=== PATIENT | female | born 2000 | race Caucasian/White ===

== ENCOUNTER 2023-07-09 14:27 | Emergency (ER) | payer MEDICAID, SELFPAY ==
[2023-07-09 14:37] VITALS: BP 103/66; PULSE 93; RESP 16; TEMP 35.8; O2SAT 98; BMI 20.4
--- NOTE | 2023-07-09 15:18 | CT_ITS ---
Patient: ANAND ROBLES Facility:?[facility] Patient ID:?[id number] Site Patient ID:?[id number]. Site :?[id number] Study:?CT-Abdomen/Pelvis W/ ISOVUE 370-07/09/2023 5:02:30 PM Ordering Physician:VIDYA Final Report: Indication: Right lower quadrant abdominal pain Technique: CT of the abdomen and pelvis was obtained with 56 mL of Isovue 370 intravenous contrast. Please note that all CT scans at this facility use dose modulation, iterative reconstruction, and/or weight-based dosing when appropriate to reduce radiation dose to as low as reasonably achievable. Comparison: None. Findings: Paucity of intra-abdominal fat slightly limits evaluation of the organs. Lower thorax: Normal. Liver and biliary tree: Normal. Gallbladder: Normal. Spleen: Normal. Pancreas: Normal. Adrenal glands: Normal. Kidneys and ureters: No hydronephrosis. No obstructing renal calculi. Gastrointestinal tract: Moderate stool burden is seen throughout the colon. No evidence of bowel obstruction. Possible appendix (2/88), though the appendix is not definitively visualized in its entirety. Peritoneal cavity: Trace nonspecific free fluid within the pelvis. Bladder: Normal. Pelvic organs: Normal. Vasculature: Normal. Lymph nodes: Normal. Abdominal wall: Normal. Musculoskeletal: Normal. Impression: Paucity of intra-abdominal fat slightly limits evaluation of the organs. Moderate stool burden is seen throughout the colon. No evidence of bowel obstruction. Possible appendix, though the appendix is not definitively visualized in its entirety. The visualized appendix candidate appears to be within normal limits. Please note that all CT scans at this facility use dose modulation, iterative reconstruction, and/or weight-based dosing when appropriate to reduce radiation dose to as low as reasonably achievable. Dictated by Raimundo Virk MD @ 07/09/2023 5:22:31 PM Signed by:?Raimundo Virk MD @07/09/2023 5:22:31 PM (Electronic Signature)
--- NOTE | 2023-07-09 15:54 | ED_ITS ---
HPI - Abdominal Pain General Date Seen: 07/09/23 Chief Complaint: Abdominal Pain Stated Complaint: R side abdominal pain Time Seen by Provider: 07/09/23 14:47 Source: patient Mode of arrival: ambulatory Limitations: no limitations History of Present Illness HPI narrative: Patient was a 22-year-old female sent here from urgent care. States last night she notes she lost her appetite is having some periumbilical pain. This morning she was in her hungry but ate a big breakfast the see the out make her feel better. She then quickly vomited after that. She states the pain is now radiating down to her right lower quadrant. Is not currently nauseated but does note she took some Zofran before she came. States the pain is tolerable at this time. No previous abdominal surgeries. Denies chest pain, shortness of breath, dysuria, lightheadedness, dizziness, vision changes, weakness, numbness, diarrhea, constipation. Denies ever having symptoms like this before. Has not noticed any fevers or chills. Related Data Home Medications Medication Instructions Recorded Confirmed No Known Home Medications 07/09/23 07/09/23 Allergies Allergy/AdvReac Type Severity Reaction Status Date / Time amoxicillin Allergy Verified 07/09/23 13:37 Review of Systems Status of ROS Reports: 10 or more systems reviewed and unremarkable except as noted in History and below [facility] Social History Smoking Status: Never smoker Do you use any of these nicotine containing products: None How often do you have a drink containing alcohol: never How often do you have six or more drinks on one occasion: Never AUDIT-C Alcohol total score: 0 Non-prescribed substance use: denies use Exam Narrative: Exam Narrative: Const: Well-nourished, Well-developed, in mild distress Eyes: PERRL, no conjunctival injection, and symmetrical lids HENT: Atraumatic external nose and ears. Moist mucous membranes. Neck: Symmetric, trachea midline, No thyromegaly. CVS: RRR, No murmurs or gallops. Peripheral pulses 2+ and equal in all extremities RESP: Unlabored respiratory effort. Clear to auscultation bilaterally. GI: Right lower quadrant tenderness, Nondistended, No rebound or guarding. MSK:Extremities w/o deformity, Normal Active ROM Skin: Warm, Dry. No rashes or lesions. Neuro: Normal Muscle tone, No focal neurological deficits. Psych: Awake, Alert, & Oriented x3. Appropriate mood and affect. Const: Vital Signs, click to edit/add: Vital Signs - 24 hr 07/09/23 14:37 07/09/23 17:03 Temperature 96.4 F L Pulse Rate [Pulse Oximeter] 93 83 Respiratory Rate 16 18 Blood Pressure [Ri ght Upper Arm] 103/66 111/68 Pulse Oximetry 98 100 Oxygen Delivery Me thod Room Air Room Air Course Vital Signs Vital signs: Initial Vital Signs Temperature 96.4 F L 07/09/23 14:37 Temperature Source Temporal Artery Scan 07/09/23 14:37 Pulse Rate 93 07/09/23 14:37 Respiratory Rate 16 07/09/23 14:37 Blood Pressure 103/66 07/09/23 14:37 Blood Pressure Mean 78 07/09/23 14:37 Blood Pressure Position Sitting 07/09/23 14:37 Pulse Oximetry 98 07/09/23 14:37 Oxygen Delivery Method Room Air 07/09/23 14:37 Vital Signs Temperature 96.4 F L 07/09/23 14:37 Pulse Rate 93 07/09/23 14:37 Respiratory Rate 16 07/09/23 14:37 Blood Pressure 103/66 07/09/23 14:37 Pulse Oximetry 98 07/09/23 14:37 Oxygen Delivery Method Room Air 07/09/23 14:37 Temperature 96.4 F L 07/09/23 14:37 Pulse Rate 83 07/09/23 17:03 Respiratory Rate 18 07/09/23 17:03 Blood Pressure 111/68 07/09/23 17:03 Pulse Oximetry 100 07/09/23 17:03 Oxygen Delivery Method Room Air 07/09/23 17:03 Medications Administered Medications: Discontinued Medications Generic Name Dose Route Start Last Admin Trade Name Freq PRN Reason Stop Dose Admin Lactated Ringer's 1,000 mls @ 1,000 mls/hr 07/09/23 15:18 07/09/23 17:45 Lactated Ringers 1000 Ml IV 07/09/23 16:17 Infused .Q1H ONE Infusion MDM - Abdominal Pain MDM Narrative Medical decision making narrative: Patient is a 22-year-old female presenting for right lower quadrant pain. Will give her a L fluids for dehydration associated with her nausea. Does not feel like she needs nausea or pain medication at this time. Considering the patient's symptoms I am concerned for appendicitis. Will do lab work and a CT scan. I small-bowel obstruction seems very unlikely considering her age in no history of abdominal surgeries. Lab work all returned showing no concerning abnormalities. She is not requesting any pain medication at this time. She has no other concerns noted. CT scan of the abdomen and pelvis does not definitively showed no acute appendicitis but but they believe is likely the appendix does not appear inflamed in the part they can see. Considering her otherwise normal vital signs and lab work I am comfortable sending her home at this time. This could just be a viral gastroenteritis. She does have some constipation which could also be causing symptoms. I did inform her to return to the emergency department if symptoms worsen as she could just be in the early stages the of appendicitis. She states she understands. Lab Data Labs: Lab Results 07/09/23 07/09/23 Range/Units 16:00 16:20 WBC 8.31 (4.50-11.00) K/uL RBC 4.99 (4.00-5.20) m/uL Hgb 14.2 (12.0-16.0) gm/dL Hct 42.6 (33.0-51.0) % MCV 85 (80-100) fL MCH 29 (26-34) pg MCHC 33 (32-36) gm/dL RDW Coeff of Sulaiman 13.0 (11.5-15.5) % Plt Count 377 (140-440) K/uL Neut % (Auto) 61.8 (42.0-72.0) % Lymph % (Auto) 30.4 (20-44) % [place]cdowell % (Auto) 5.5 (0.0-11.0) % Eos % (Auto) 1.2 (0.0-7.0) % Baso % (Auto) 0.1 (0.0-3.0) % Neut # (Auto) 5.13 (1.7-7.0) K/uL Lymph # (Auto) 2.53 (0.90-2.90) K/uL Mcdowell # (Auto) 0.50 (0.00-0.90) K/UL Eos # (Auto) 0.10 (0.00-0.50) K/uL Baso # (Auto) 0.01 (0.00-0.30) K/uL Abs Immat Gran (auto) 0.08 (0.00-0.30) K/uL Imm/Tot Granulo (auto) 1.0 % Sodium 138 (135-149) mmol/L Potassium 3.4 L (3.6-5.1) mmol/L Chloride 102 (96-114) mmol/L Carbon Dioxide 24 (20-32) mmol/L Anion Gap 12 (7-15) mEq/L BUN 7 (5-24) mg/dL Creatinine 0.7 (0.5-1.5) mg/dL Estimated Creat Clear 105.57 Estimated GFR 127 ml/min Glucose 92 (60-115) mg/dL Calcium 9.9 (8.4-10.6) mg/dL Total Bilirubin 0.4 (0.1-1.5) mg/dL AST 32 (12-35) U/L ALT 34 (4-35) U/L Alkaline Phosphatase 76 (40-150) U/L Total Protein 8.0 (6.0-8.3) g/dL Albumin 4.7 (3.3-5.0) g/dL Urine Color Yellow (Yellow) Urine Appearance Clear (Clear) Urine pH 7.0 (5.0-8.5) Ur Specific [place] 1.020 (1.000-1.030) Urine Protein Negative (Negative) Urine Glucose (UA) Negative (Negative) Urine Ketones Negative (Negative) Urine Blood Negative (Negative) Urine Nitrite Negative (Negative) Urine Bilirubin Negative (Negative) Urine Urobilinogen 0.2 (0.2-1.0) Ur Leukocyte Esterase Negative (Negative) Urine RBC 0-2 (0-2) Urine WBC 0-2 (0-5) Ur Squamous Epith Cells Few (None-Few) Urine Bacteria Few A (None) Urine HCG, Qual Negative (Negative) Discharge Plan Discharge Clinical Impression: Abdominal pain Qualifiers: Abdominal location: right lower quadrant Qualified Code(s): R10.31 - Right lower quadrant pain Constipation Qualifiers: Constipation type: unspecified constipation type Qualified Code(s): K59.00 - Constipation, unspecified Patient Disposition: Home, Self-Care Condition: Stable Instructions: Abdominal Pain (ED) Additional Instructions: Imaging did not show signs of appendicitis at this time but if symptoms do seem to get worse your are walk return to emergency department for re-evaluation. There is always a chance this could just be the early stages of appendicitis and due to year thin frame it was difficult to definitively see the appendix. Take Tylenol and ibuprofen for pain. Cyst you do a some constipation I recommend taking stool softeners. Prescriptions: No Action No Known Home Medications Follow Up/Referrals: Provider,Not a Local [Primary Care Provider] - Stand Alone Forms: Nextt Info Instructions
[2023-07-09] MEDS: LACTATED RINGERS 1000 ML 1,000 ML IV (16:05)
[2023-07-09 16:15] LABS: Basophils Absolute Auto 0.01 K/uL (0.00-0.30); Basophils Percent Auto 0.1 % (0.0-3.0); Eosinophils Percent Auto 1.2 % (0.0-7.0); Hematocrit 42.6 % (33.0-51.0); Hemoglobin* 14.2 gm/dL (12.0-16.0); Immature Granulocytes Abs Auto 0.08 K/uL (0.00-0.30); Lymphocytes Absolute Auto 2.53 K/uL (0.90-2.90); Lymphocytes Percent Auto 30.4 % (20-44); Mean Corpuscular HGB Conc 33 gm/dL (32-36); Mean Corpuscular Hemoglobin 29 pg (26-34); Mean Corpuscular Volume 85 fL (80-100); Monocytes Percent Auto 5.5 % (0.0-11.0); Neutrophils Absolute Auto 5.13 K/uL (1.7-7.0); Neutrophils Percent Auto 61.8 % (42.0-72.0); Platelet Count* 377 K/uL (140-440); Red Blood Count 4.99 m/uL (4.00-5.20); White Blood Count* 8.31 K/uL (4.50-11.00)
[2023-07-09 16:16] LABS: Slide Review Reflex No
[2023-07-09 16:30] LABS: Appearance Urine Clear (Clear); Bilirubin Urine Negative (Negative); Blood Urine Negative (Negative); Color Urine Yellow (Yellow); Glucose Urine Negative (Negative); Ketones Urine Negative (Negative); Leukocyte Esterase Urine Negative (Negative); Nitrite Urine Negative (Negative); Protein Urine Negative (Negative); Urobilinogen Urine 0.2 (0.2-1.0)
[2023-07-09 16:32] LABS: Ur HCG Qualitative* Negative (Negative)
[2023-07-09 16:35] LABS: Albumin* 4.7 g/dL (3.3-5.0); Chloride* 102 mmol/L (96-114)
[2023-07-09 16:35] LABS: Bacteria Urine Few; RBC Urine 0-2 (0-2); Squamous Epithelial Cell Urine Few (None-Few); WBC Urine 0-2 (0-5)
[2023-07-09 16:36] LABS: Potassium* 3.4 mmol/L (3.6-5.1); Sodium* 138 mmol/L (135-149)
[2023-07-09 16:38] LABS: Alkaline Phosphatase* 76 U/L (40-150); Anion Gap 12 mEq/L (7-15); Aspartate Amino Transferase* 32 U/L (12-35); Bilirubin Total* 0.4 mg/dL (0.1-1.5); Blood Urea Nitrogen* 7 mg/dL (5-24); Carbon Dioxide* 24 mmol/L (20-32); Creatinine* 0.7 mg/dL (0.5-1.5); Est. Creatinine Clearance* 105.57; Estimated Glomerular Filt Rate 127 ml/min
[2023-07-09 16:39] LABS: Alanine Aminotransferase* 34 U/L (4-35); Calcium* 9.9 mg/dL (8.4-10.6); Glucose* 92 mg/dL (60-115)
[2023-07-09 17:03] VITALS: BP 111/68; PULSE 83; RESP 18; O2SAT 100
== END 2023-07-09 18:10 | disposition home or self-care (01) ==
PROVIDERS: Emergency Provider Student in an Organized Health Care Education/Training Program
DX: R10.31 Right lower quadrant pain (principal); K59.00 Constipation, unspecified
CPT/HCPCS: 36415; 74177; 80053; 81001; 81025; 85025; 87086; 99283; J7120; Q9967